=== PATIENT | female | born 1985 | race Caucasian/White ===

== ENCOUNTER 2016-11-06 07:29 | Inpatient (IN) ==
[~2016-11-06 07:29] MED LIST: GENTAMICIN IV SCH
[2016-11-06 08:07] LABS: Apearance,Urine Slightly Hazy (Clear); Bacteria,Urine Few /HPF (Few); Bilirubin,Urine Negative (Negative); Blood, Urine Negative (Negative); Glucose,Urine (UA) Negative (Negative); Ketones,Urine Negative (Negative); Mucus,Urine Occasional /LPF (Occasional); Nitrite,Urine Negative (Negative); Protein,Urine 30 MG/DL; RBC,Urine 1 /HPF (0-4); Squamous Epithelial Cell,Urine Occasional /HPF (0-10); Urine Color Yellow (Yellow); Urine Specific Gravity 1.012 (1.001-1.035); Urine Urobilinogen < 2.0 EU/DL (0.2-1.0); WBC,Urine 49 /HPF (0-6)
[2016-11-06 08:12] LABS: Barbiturates Screen,Urine Negative (Negative); Benzodiazepines Screen,Urine Positive (Negative); Cannabinoid Screen,Urine Negative (Negative); Opiate Screen,Urine Negative (Negative); Phencyclidine Screen,Urine Negative (Negative)
[2016-11-06] MEDS ORDERED: LACTATED RINGERS 1,000 ML IV ONE (08:59)
[2016-11-06] MEDS ORDERED: MEPERIDINE 50 MG/1 ML VIAL IM ONE (08:59)
[2016-11-06] MEDS ORDERED: PROMETHAZINE 25 MG/1 ML VIAL IM ONE (08:59)
[2016-11-06] MEDS ORDERED: AMPICILLIN INJ 2,000 MG in SODIUM CHLORIDE 0.9% 100 ML IV ONE (08:59)
[2016-11-06] MEDS ORDERED: AMPICILLIN 2,000 MG VIAL ONE (09:02)
[2016-11-06] MEDS ORDERED: SODIUM CHLORIDE 0.9% 100 ML IV ONE (09:02)
[2016-11-06] MEDS: LACTATED RINGERS 1,000 ML IV SCH ×2 (10:35→20:00)
[2016-11-06] MEDS ORDERED: ACETAMINOPHEN 325 MG TABLET PO PRN (11:57)
[2016-11-06 12:43] LABS: Basophils % 0.2 % (0.0-0.8); Eosinophils % 0.1 % (0.00-10.9); Hematocrit 29.6 VOL% (35.7-47.0); Hemoglobin 10.1 GM/DL (12.0-16.0); Immature Granulocytes % 1.2 %; Immature Granulocytes Absolute 0.26 #; Lymphocytes # 1.1 10*3/uL (1.4-4.0); Mean Corpuscular HGB Conc 34.1 GM/DL (32-36); Mean Corpuscular Hemoglobin 31 PG (27-34); Mean Corpuscular Volume 90.8 FL (87-102); Mean Platelet Volume 10.2 FL (9.6-12.0); Neutrophils # 19.1 10*3/uL (1.4-7.4); Neutrophils % 84.5 % (38.7-73.9); Platelet Count 289 T/CUMM (130-400); Red Blood Count 3.26 MC/CUMM (3.8-5.5); Red Cell Distribution Width 14.9 % (9.3-17.3); White Blood Count 22.6 T/CUMM (4-12)
[2016-11-06 13:18] LABS: Albumin 2.7 G/DL (3.4-5.0); Bilirubin,Total 0.4 MG/DL (0.2-1.0); Calcium 8.7 MG/DL (8.5-10.1); Osmolality,Calculated 261.4 MOS/KG (273-304); Potassium 3.4 MMOL/L (3.5-5.1); Total Protein 5.9 G/DL (6.4-8.3)
[2016-11-06] MEDS: MEPERIDINE 50 MG/1 ML VIAL IV PRN ×2 (14:45→21:08)
[2016-11-06] MEDS: AMPICILLIN INJ 2,000 MG in SODIUM CHLORIDE 0.9% 100 ML IV SCH ×2 (15:00→21:05)
[2016-11-06] MEDS: PROMETHAZINE 25 MG/1 ML VIAL IM PRN ×2 (15:10→21:07)
[2016-11-06 15:51] LABS: Lymphocytes 6 % (20-55); Segmented Neutrophils 88 % (50-85); Total Cells Counted 100
[2016-11-06 15:52] LABS: Platelet Estimate Normal
--- NOTE | 2016-11-06 19:04 | OB/GYN History & Physical ---
History of Present Illness Chief complaint: 34 weeks gestation, with pyelonephritis History of present illness: Ms. Underwood is a 31 year old female Multiparous patient with a known history of drug abuse, chronic pelvic pain, chronic multiple medical problems, who presents with flank pain on the right side. Urinalysis demonstrated white blood cells leukocytes, and RBCs. In light of these findings with an elevated temperature she was admitted for IV fluids, IV antibiotics, and pain management. This patient will receive NSTs on every shift, ultrasound of the pelvis, and will adjust her pain medicine appropriate. Home Medications Medication Instructions Recorded Confirmed Type Promethazine Tab [Phenergan Tab] 25 mg PO DIRECTED 11/06/16 11/06/16 History Ranitidine Tab [Zantac Tab] 75 mg PO DIRECTED 11/06/16 11/06/16 History Allergies Allergy/AdvReac Type Severity Reaction Status Date / Time ceftriaxone [From Rocephin] Allergy Severe HIVES Verified 01/02/15 15:49 desloratadine [From Clarinex] Allergy HIVES Verified 09/09/15 20:33 Medical,Surgical,& Family Hx - Medical History Psychological: History of: Bipolar Disorder - Surgical History Reproductive Surgeries: Surgical HX of;: Section (2011) Patient denies;: Hysterectomy, Tubal Ligation - Family History Family History: Reports;: Family Cancer, Additional Family History (THYROID, BREAST DISEASE) - Social History Smoking Status: Current every day smoker Frequency of Alcohol Use: None Type of Drug Use: Methamphetamine Exam P[employer]ER [employer]M [employer]KER - Constitutional Vitals: Vital Signs Temp Pulse Resp BP Pulse Ox 11/06/16 17:30 20 11/06/16 15:55 20 11/06/16 15:25 97.3 F L 102 H 20 92/56 98 11/06/16 13:49 20 11/06/16 13:46 20 11/06/16 11:59 101.3 F H 115 H 20 104/61 11/06/16 08:00 102.3 F H 127 H 18 124/60 99 General appearance: mild distress - Antepartum / Post Antepartum Exam Cervix - Dilatation: Long thick and closed - Head Head exam: Present: normal inspection - Eye Eye exam: Present: EOMI - ENT ENT exam: Present: normal exam - Neck Neck exam: Present: normal inspection - Respiratory Respiratory exam: Present: clear to auscultation bilaterally - Breast Breasts: as per HPI Menstruation: as per HPI - Cardiovascular Cardiovascular exam: Present: regular rate and rhythm - GI/Abdominal GI/Abdominal exam: Present: normal bowel sounds, other (CVA tenderness) - Extremities Exam Extremities exam: Present: normal inspection - Back Exam Back exam: Present: normal inspection, CVA tenderness (R) - Neurological Exam Neurological exam: Present: alert, oriented X3 - Psychiatric Psychiatric exam: Present: normal affect - Skin Skin exam: Present: normal color Assessment and Plan (1) Pyelonephritis affecting Status: Acute Assessment and plan: IV fluids, analgesic, and IV antibiotics ampicillin and gentamicin. Current Visit: Yes Results - Labs CBC & BMP: 11/06/16 12:22 11/06/16 12:21 Quality Measures - VTE Contraindication to Pharmacological VTE Prophylaxis: Clinical assessment deems Pt at low risk, no prophalaxis needed
[2016-11-06] MEDS ORDERED: GENTAMICIN INJ 100 MG in PREMIX 1 EACH IV ONE (20:00)
[2016-11-06] MEDS: PANTOPRAZOLE 40 MG VIAL IV PRN (20:12)
[2016-11-06] MEDS: ACETAMINOPHEN 500 MG TABLET PO SCH (20:15)
[2016-11-06] MEDS: PANTOPRAZOLE 40 MG TABLET PO SCH (20:28)
[2016-11-07] MEDS: ACETAMINOPHEN 500 MG TABLET PO SCH (02:08)
[2016-11-07] MEDS: PROMETHAZINE 25 MG/1 ML VIAL IM PRN ×3 (03:15→21:25)
[2016-11-07] MEDS: MEPERIDINE 50 MG/1 ML VIAL IV PRN ×4 (03:15→21:31)
[2016-11-07] MEDS: AMPICILLIN INJ 2,000 MG in SODIUM CHLORIDE 0.9% 100 ML IV SCH ×4 (03:21→21:30)
[2016-11-07] MEDS: LACTATED RINGERS 1,000 ML IV SCH ×3 (04:34→23:00)
[2016-11-07] MEDS: GENTAMICIN INJ 90 MG in SODIUM CHLORIDE 0.9% 100 ML IV SCH ×3 (04:35→20:00)
--- NOTE | 2016-11-07 08:58 | Ultrasound Report ---
History: well being. Maternal pyelonephritis Date: 11/07/2016 Study: Obstetrical ultrasound greater than 14 weeks Comparison exam: None this Real-time ultrasound images are captured and archived. There is a single intrauterine fetus in vertex presentation with a heart rate of 151 bpm. The placenta is anterior without previa. The maternal cervix is grossly closed and measures 3.1 cm length. There is oligohydramnios with an WHITNEY of 4.1 cm. The spine, four-chamber heart view, stomach bubble, kidneys, bladder, and cord insertion are identified and appear normal. The intracranial structures are not measured, though no gross intracranial abnormality is identified. BPD 86 mm or 34 weeks 6 days Head circumference 301 mm or 33 weeks 3 days Abdominal circumference 290 mm or 33 weeks 0 days Femur length 61 mm or 31 weeks 4 days The femur length to BPD ratio is mildly decreased 70.43. The other standard departmental ratios are within normal range. The fetus measures in the 7.7 percentile based on EFW There are no masses of the maternal myometrium. The maternal ovaries are not seen because of gestation size. Incidental note is made of cholelithiasis and a large amount of sludge in the lumen of the gallbladder. Impression: Single intrauterine fetus in vertex presentation with an ultrasound gestational age of 33 weeks 2 days +/- 16 days, MELANIE December 24, 2016, and EFW 2049 g +/- 307 g. motion and cardiac activity are noted during real-time sonography. There is oligohydramnios with WHITNEY of 4.1 cm Incidental note is made of cholelithiasis and a large amount of sludge in the gallbladder PROCEDURE INTERPRETED AT [facility] DEPARTMENT OF RADIOLOGY Final Report Signed by: Dr. Christine Cervantes
[2016-11-07] MEDS: PANTOPRAZOLE 40 MG VIAL IV PRN ×2 (09:15→21:25)
[2016-11-07] MEDS: PANTOPRAZOLE 40 MG TABLET PO SCH ×2 (09:48→21:35)
--- NOTE | 2016-11-07 19:47 | Progress Note ---
Assessment and Plan (1) Pyelonephritis affecting Status: Acute Assessment and plan: IV fluids, analgesic, and IV antibiotics ampicillin and gentamicin. Current Visit: Yes Exam (Progress Note) - Constitutional Vitals: Period Temp Pulse Resp BP Sys/Saeed Pulse Ox Last 24 Hr 97.1 F-98.5 F 83-109 18-20 103-153/54-78 97-98 Results - Labs CBC & BMP: 11/06/16 12:22 11/06/16 12:21 Quality Measures - VTE Contraindication to Pharmacological VTE Prophylaxis: Clinical assessment deems Pt at low risk, no prophalaxis needed
[2016-11-07] MEDS: DOCUSATE SODIUM 100 MG CAPSULE PO SCH (21:30)
[2016-11-08] MEDS: PROMETHAZINE 25 MG/1 ML VIAL IM PRN (02:54)
[2016-11-08] MEDS: MEPERIDINE 50 MG/1 ML VIAL IV PRN ×4 (02:55→21:43)
[2016-11-08] MEDS: AMPICILLIN INJ 2,000 MG in SODIUM CHLORIDE 0.9% 100 ML IV SCH ×2 (03:04→08:35)
[2016-11-08] MEDS: GENTAMICIN INJ 90 MG in SODIUM CHLORIDE 0.9% 100 ML IV SCH (04:45)
--- NOTE | 2016-11-08 08:06 | Ultrasound Report ---
US OB biophys profile Indication: Urinary tract infection. Comparison: None. Technique: Using transcutaneous probe, routine biophysical profile was performed. Ultrasound images were captured and stored. Biophysical variables including breathing, gross body movements, tone, and qualitative amniotic fluid volume scored. Findings: Each of the above physical variables were graded at +2 for a total of +8. The fetus lies in cephalic position. Heart activity is present with a heart rate of 123 beats per minute. The amniotic fluid index is 4.97cm. Incidental imaging of gallstones and gallbladder sludge. Impression: 1. biophysical profile score 6. Score of 0 for breathing. 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 2. Incidental imaging of gallstones and gallbladder sludge. 11/08/2016 8:01 AM PROCEDURE INTERPRETED AT [facility] DEPARTMENT OF RADIOLOGY Final Report Signed by: Dr. Cam Newton
[2016-11-08] MEDS: LACTATED RINGERS 1,000 ML IV SCH (08:24)
[2016-11-08] MEDS: PANTOPRAZOLE 40 MG VIAL IV PRN ×2 (08:24→21:50)
[2016-11-08] MEDS ORDERED: ONDANSETRON 4 MG/2 ML VIAL ONE (08:25)
[2016-11-08] MEDS: ONDANSETRON 4 MG/2 ML VIAL IV PRN ×2 (08:29→15:20)
[2016-11-08] MEDS: DOCUSATE SODIUM 100 MG CAPSULE PO SCH ×2 (08:30→21:43)
[2016-11-08] MEDS: PANTOPRAZOLE 40 MG TABLET PO SCH ×2 (09:13→23:06)
[2016-11-08 10:48] LABS: Basophils % 0.2 % (0.0-0.8); Eosinophils # 0.1 10*3/uL (0.0-0.87); Eosinophils % 1.1 % (0.00-10.9); Hemoglobin 8.6 GM/DL (12.0-16.0); Immature Granulocytes % 1.1 %; Immature Granulocytes Absolute 0.15 #; Lymphocytes # 1.2 10*3/uL (1.4-4.0); Lymphocytes % 9.2 % (21.3-54.2); Mean Corpuscular HGB Conc 34.4 GM/DL (32-36); Mean Corpuscular Hemoglobin 31 PG (27-34); Mean Corpuscular Volume 90.3 FL (87-102); Mean Platelet Volume 9.6 FL (9.6-12.0); Monocytes # 1.6 10*3/uL (0.11-0.8); Monocytes % 12.4 % (1.7-12.7); Platelet Count 235 T/CUMM (130-400); Red Blood Count 2.77 MC/CUMM (3.8-5.5); Red Cell Distribution Width 14.7 % (9.3-17.3); White Blood Count 13.1 T/CUMM (4-12)
[2016-11-08] MEDS: PIPERACILLIN/TAZOBACTAM 3,375 MG in SODIUM CHLORIDE 0.9% 100 ML IV SCH ×2 (11:50→20:13)
--- NOTE | 2016-11-08 12:56 | General Surgery Consult Note ---
Assessment and Plan - Time spent with patient Time spent with patient: Less than 30 minutes (1) Cholelithiasis affecting in third trimester, antepartum Status: Acute Assessment and plan: Impression: Abdominal pain epigastric in nature possibly secondary to use the versus cholelithiasis. Plan: 1. Agree with present IV fluids and IV antibiotics. 2. We will repeat the labs and can get an idea what the trend is at this time. 3. Surgical intervention at this stage of the is difficult due to the large uterus is present and the risk of injury to that at this time. The CO2 and abdominal distention could affect the child during this process. Ideally would be best to put her off until after delivery and did do a gallbladder after that. At this time is difficult to really get an idea handle her symptoms and how severe they might be whether not she could wait until her delivery time. If we had to do something at this point we could easily be looking at an open procedure rather than a laparoscopic. Current Visit: Yes (2) Intrauterine Status: Acute Assessment and plan: Impression: Intrauterine at about 35 weeks. Current Visit: Yes History of Present Illness Chief complaint: Patient with abdominal pain and nausea and 34 week History of present illness: Ms. Underwood is a 31 year old female white female who is in with some abdominal pain 34 week and evidence of urinary tract infection also. Her liver function studies are normal and they have went to do a ultrasound of the fetus and noted that she had some stones and sludge in the gallbladder. She has had multiple pregnancies and denies any symptoms prior to her that would suggest a gallbladder disease at this time. She is claiming that she hurts now primary on the right side right flank area with some nausea especially with most foods. Unfortunately where within the third trimester only 4 weeks of delivery time. Risk of laparoscopic surgery at this stage of the is high and generally not strongly indicated especially elective basis. Will review her studies and her labs and see what her alternatives might be for this patient. Home Medications Medication Instructions Recorded Confirmed Type Promethazine Tab [Phenergan Tab] 25 mg PO DIRECTED 11/06/16 11/06/16 History Ranitidine Tab [Zantac Tab] 75 mg PO DIRECTED 11/06/16 11/06/16 History Allergies Allergy/AdvReac Type Severity Reaction Status Date / Time ceftriaxone [From Rocephin] Allergy Severe HIVES Verified 07/27/15 15:49 desloratadine [From Clarinex] Allergy HIVES Verified 09/09/15 20:33 Medical,Surgical,& Family Hx - Medical History Psychological: History of: Bipolar Disorder - Surgical History Reproductive Surgeries: Surgical HX of;: Section (2011) Patient denies;: Hysterectomy, Tubal Ligation - Family History Family History: Reports;: Family Cancer, Additional Family History (THYROID, BREAST DISEASE) - Social History Smoking Status: Current every day smoker Frequency of Alcohol Use: None Type of Drug Use: Methamphetamine 12 point system: reviewed and no additional remarkable complaints except as stated Exam - Constitutional Vitals: Period Temp Pulse Resp BP Sys/Saeed Pulse Ox Last 24 Hr 97.1 F-98 F 55-101 18-20 104-132/56-75 96-100 General appearance: mild distress - Head Head exam: Present: normal inspection - ENT ENT exam: Present: normal exam - Neck Neck exam: Present: normal inspection - Respiratory Respiratory exam: Present: clear to auscultation bilaterally, rales - Cardiovascular Cardiovascular exam: Present: RRR - GI/Abdominal GI/Abdominal exam: Present: hypoactive bowel sounds, mass (Intrauterine that is well above the umbilicus), tenderness (Right upper quadrant of the abdomen and epigastric area), soft - Extremities Exam Extremities exam: Present: normal inspection - Back Exam Back exam: Present: normal inspection - Neurological Exam Neurological exam: Present: alert, oriented X3, CN II-XII intact - Skin Skin exam: Present: normal color, warm, dry Quality Measures - VTE Contraindication to Pharmacological VTE Prophylaxis: Clinical assessment deems Pt at low risk, no prophalaxis needed Results - Labs CBC & BMP: 11/08/16 10:43 11/06/16 12:21 Lab Results: I have reviewed the past 24 hour labs
--- NOTE | 2016-11-08 14:26 | Progress Note ---
Assessment and Plan (1) Pyelonephritis affecting Status: Acute Assessment and plan: IV fluids, analgesic, and IV antibiotics ampicillin and gentamicin. Current Visit: Yes Family Medicine PN Sub Interval history: Third day of hospitalization, secondary to a UTI, and ultrasound finding of a cholelithiasis. Patient still is not experiencing at this time a temperature, however she has occasional nausea and emesis with her diet. General surgery evaluated this patient and at this point time deemed that she is not a candidate for an operative procedure. They did change her diet to a low-fat diet as well. We will continue with the Protonix as needed also IV fluids and she is being switched to the Ancef for her urinary tract infection. Patient is documented good movements. Exam (Progress Note) - Constitutional Vitals: Period Temp Pulse Resp BP Sys/Saeed Pulse Ox Last 24 Hr 97.1 F-98 F 55-101 18-20 104-132/56-75 96-100 Results - Labs CBC & BMP: 11/08/16 10:43 11/06/16 12:21 Quality Measures - VTE Contraindication to Pharmacological VTE Prophylaxis: Clinical assessment deems Pt at low risk, no prophalaxis needed
[2016-11-08] MEDS ORDERED: MAGNESIUM HYDROXIDE SUSP 30 ML UDCUP PO PRN (23:07)
[2016-11-09] MEDS: LACTATED RINGERS 1,000 ML IV SCH (02:43)
[2016-11-09] MEDS: ONDANSETRON 4 MG/2 ML VIAL IV PRN ×4 (03:57→23:11)
[2016-11-09] MEDS: MEPERIDINE 50 MG/1 ML VIAL IV PRN ×4 (03:57→23:11)
[2016-11-09] MEDS: PIPERACILLIN/TAZOBACTAM 3,375 MG in SODIUM CHLORIDE 0.9% 100 ML IV SCH ×2 (04:00→11:10)
[2016-11-09 07:03] LABS: Basophils % 0.3 % (0.0-0.8); Eosinophils # 0.2 10*3/uL (0.0-0.87); Eosinophils % 1.5 % (0.00-10.9); Hematocrit 25.3 VOL% (35.7-47.0); Hemoglobin 8.5 GM/DL (12.0-16.0); Lymphocytes # 1.2 10*3/uL (1.4-4.0); Lymphocytes % 12.3 % (21.3-54.2); Mean Corpuscular HGB Conc 33.6 GM/DL (32-36); Mean Corpuscular Hemoglobin 30 PG (27-34); Mean Corpuscular Volume 89.7 FL (87-102); Monocytes # 1.1 10*3/uL (0.11-0.8); Monocytes % 11.6 % (1.7-12.7); Neutrophils # 7.2 10*3/uL (1.4-7.4); Neutrophils % 73.3 % (38.7-73.9); Platelet Count 271 T/CUMM (130-400); Red Blood Count 2.82 MC/CUMM (3.8-5.5); Red Cell Distribution Width 14.6 % (9.3-17.3); White Blood Count 9.8 T/CUMM (4-12)
[2016-11-09 07:32] LABS: Alanine Aminotransferase < 9 U/L (13-56); Albumin 1.8 G/DL (3.4-5.0); Alkaline Phosphatase 103 U/L (45-117); Amylase 7 U/L (25-115); Aspartate Amino Transferase 12 U/L (0-37); Bilirubin,Total < 0.39 MG/DL (0.2-1.0); Blood Urea Nitrogen 5 MG/DL (7-18); Calcium 7.9 MG/DL (8.5-10.1); Glucose 96 MG/DL (74-106); Osmolality,Calculated 275.4 MOS/KG (273-304); Potassium 3.1 MMOL/L (3.5-5.1); Sodium 140 MMOL/L (136-145); Total Protein 4.9 G/DL (6.4-8.3)
[2016-11-09] MEDS: PANTOPRAZOLE 40 MG VIAL IV PRN ×2 (08:30→21:18)
[2016-11-09] MEDS: PANTOPRAZOLE 40 MG TABLET PO SCH ×2 (09:00→22:08)
--- NOTE | 2016-11-09 09:58 | Ultrasound Report ---
US OB biophys profile Indication: Abnormal BPP on prior scan. Comparison: Biophysical profile scan 11/08/2016. Technique: Multiple longitudinal and transverse real-time sonographic images of the fetus were obtained with a transabdominal transducer. Findings: Single fetus in vertex presentation with cardiac activity. Heart rate is regular at 1 49 bpm. Amniotic fluid index = 5.06 cm, which is lower limits of normal. Placenta is anterior with no previa. Biophysical variables and scores: breathing movements: 2 out of 2 Gross body movements: 2 out of 2 tone: 2 out of 2 Qualitative amniotic fluid volume: 2 out of 2 Total score: 8 out of 8 Ultrasound images were captured and stored. IMPRESSION: Normal biophysical profile, low risk for chronic asphyxia. PROCEDURE INTERPRETED AT [facility] DEPARTMENT OF RADIOLOGY Final Report Signed by: David Piña
[2016-11-09] MEDS: DOCUSATE SODIUM 100 MG CAPSULE PO SCH ×2 (10:00→21:18)
--- NOTE | 2016-11-09 11:33 | General Surgery Progress Note ---
Assessment and Plan - Time spent with patient Time spent with patient: Less than 30 minutes (1) Cholelithiasis affecting in third trimester, antepartum Status: Acute Assessment and plan: Impression: Abdominal pain epigastric in nature possibly secondary to use the versus cholelithiasis. Plan: 1. Agree with present IV fluids and IV antibiotics. 2. We will repeat the labs and can get an idea what the trend is at this time. 3. Surgical intervention at this stage of the is difficult due to the large uterus is present and the risk of injury to that at this time. The CO2 and abdominal distention could affect the child during this process. Ideally would be best to put her off until after delivery and did do a gallbladder after that. At this time is difficult to really get an idea handle her symptoms and how severe they might be whether not she could wait until her delivery time. If we had to do something at this point we could easily be looking at an open procedure rather than a laparoscopic. 11/09/2016. Patient seems a little bit better. I have modified her diet to get into a low- fat diet and has spoken to her about the food she can eat and that she needs to avoid. Indicated that she needed avoid salads at that can stimulate the gallbladder 2. At this time the is far enough along that be difficult to do this laparoscopically greater risk of injury with the uterus and still may have trouble exposing the gallbladder. Her lab studies are pretty much within normal limits with no sign of anything to suggest acute inflammatory process or biliary obstruction. Ideally would be best to nurse her through the and then get the gallbladder out a week or so after the delivery so that we can more safely deal with her process. We will continue to observe at this time try to get her improve symptomatically at this time. Current Visit: Yes (2) Intrauterine Status: Acute Assessment and plan: Impression: Intrauterine at about 35 weeks. Current Visit: Yes Subjective Patient reports: Present: feels better, pain is less, afebrile, other (On a low- fat diet and seems to tolerate better) Exam - Constitutional Vitals: Period Temp Pulse Resp BP Sys/Saeed Pulse Ox Last 24 Hr 97.2 F-98.0 F 71-88 18-20 104-130/57-86 97-98 General appearance: mild distress - Head Head exam: Present: normal inspection - ENT ENT exam: Present: normal exam - Neck Neck exam: Present: normal inspection - Respiratory Respiratory exam: Present: clear to auscultation bilaterally - Cardiovascular Cardiovascular exam: Present: RRR - GI/Abdominal GI/Abdominal exam: Present: mass (An intrauterine up to the xiphoid), tenderness (Tenderness is mostly subjective towards the right flank), soft - Extremities Exam Extremities exam: Present: normal inspection - Back Exam Back exam: Present: normal inspection - Neurological Exam Neurological exam: Present: alert, oriented X3, CN II-XII intact - Skin Skin exam: Present: normal color, warm, dry Results - Labs CBC & BMP: 11/09/16 06:55 11/09/16 06:55 Lab Results: I have reviewed the past 24 hour labs Quality Measures - VTE Contraindication to Pharmacological VTE Prophylaxis: Clinical assessment deems Pt at low risk, no prophalaxis needed Specialty Discharge - Follow Up or Referrals
[2016-11-09] MEDS: ALUMINUM/MAGNES/SIMETH MAX STR 30 ML UDCUP PO PRN ×3 (11:37→23:59)
--- NOTE | 2016-11-09 11:43 | Progress Note ---
Assessment and Plan (1) Pyelonephritis affecting Status: Acute Assessment and plan: IV fluids, analgesic, and IV antibiotics ampicillin and gentamicin. Current Visit: Yes Family Medicine PN Sub Interval history: Patient with a known history of acute cholecystitis, and also a pyelonephritis. Presently she is afebrile doing well tolerating clear liquid diet. Fetus is active biophysical profile prior to today was 6 out of 8 repeat this a.m. was 8 out of 8. heart tones demonstrated a reactive nonstress test. We will continue to observe. Will replace potassium intravenously and also p.o., also her blood count is 8 and 25 and also re-replace iron therapy. Will limit the amount of IV narcotics and try to convert this patient to p.o. in 24 hours. Also will limit the amount of analgesics that is possible. Exam (Progress Note) - Constitutional Vitals: Period Temp Pulse Resp BP Sys/Saeed Pulse Ox Last 24 Hr 97.2 F-98.0 F 71-88 18-20 104-130/57-86 97-98 Results - Labs CBC & BMP: 11/09/16 06:55 11/09/16 06:55 Quality Measures - VTE Contraindication to Pharmacological VTE Prophylaxis: Clinical assessment deems Pt at low risk, no prophalaxis needed Specialty Discharge - Follow Up or Referrals
[2016-11-09] MEDS: FERROUS SULFATE 325 MG TABLET PO SCH (11:52)
[2016-11-09] MEDS: POTASSIUM CHLORIDE INJ 20 MEQ in LACTATED RINGERS 1,000 ML IV SCH ×2 (14:53→23:59)
[2016-11-09] MEDS: AMOXICILLIN/CLAV 875 MG TABLET PO SCH (21:18)
[2016-11-09] MEDS: POTASSIUM CHLORIDE 20 MEQ TABLET PO SCH (21:18)
[2016-11-10] MEDS: MEPERIDINE 50 MG/1 ML VIAL IV PRN (05:43)
[2016-11-10] MEDS: ONDANSETRON 4 MG/2 ML VIAL IV PRN (05:43)
[2016-11-10] MEDS: POTASSIUM CHLORIDE INJ 20 MEQ in LACTATED RINGERS 1,000 ML IV SCH ×2 (08:00→15:34)
[2016-11-10] MEDS: POTASSIUM CHLORIDE 20 MEQ TABLET PO SCH ×2 (09:25→21:31)
[2016-11-10] MEDS: FERROUS SULFATE 325 MG TABLET PO SCH (09:25)
[2016-11-10] MEDS: PANTOPRAZOLE 40 MG TABLET PO SCH ×2 (09:25→21:32)
[2016-11-10] MEDS: AMOXICILLIN/CLAV 875 MG TABLET PO SCH ×2 (09:25→21:31)
[2016-11-10] MEDS: DOCUSATE SODIUM 100 MG CAPSULE PO SCH ×2 (09:25→21:31)
--- NOTE | 2016-11-10 09:34 | OB/GYN Progress Note ---
Assessment and Plan (1) Bipolar disease during Status: Acute Current Visit: No (2) S/P repeat low transverse Status: Acute Current Visit: No (3) Cholelithiasis affecting in third trimester, antepartum Status: Acute Assessment and plan: Pt is stable this morning. 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 Baby active Exam HOSPITAL RECEPTIONIST - Constitutional Vitals: Vital Signs Temp Pulse Resp BP Pulse Ox 11/10/16 07:55 97.9 F 75 20 108/55 98 11/10/16 04:10 97.1 F L 85 20 121/66 98 11/10/16 02:05 16 11/09/16 23:59 97.0 F L 81 20 122/70 96 11/09/16 20:00 97.4 F L 102 H 20 131/78 100 11/09/16 16:00 97.5 F L 80 20 126/87 98 11/09/16 12:00 97.6 F 86 20 128/84 98 General appearance: no acute distress - Head Head exam: Present: normocephalic - Eye Eye exam: Present: EOMI - GI/Abdominal GI/Abdominal exam: Present: other (gravid. FHTs reactive) Results - Labs CBC & BMP: 11/09/16 06:55 11/09/16 06:55
[2016-11-10] MEDS: ONDANSETRON 4 MG TABLET PO PRN ×2 (11:58→19:11)
[2016-11-10] MEDS: ALUMINUM/MAGNES/SIMETH MAX STR 30 ML UDCUP PO PRN (18:39)
[2016-11-10] MEDS ORDERED: NYSTATIN 500,000 UNIT/5 ML UDCUP SWISH/SWAL SCH ×2 (20:00→21:00)
[2016-11-11] MEDS: ALUMINUM/MAGNES/SIMETH MAX STR 30 ML UDCUP PO PRN (06:31)
[2016-11-11 06:53] VITALS: BP 103/59
--- NOTE | 2017-01-20 08:06 | Discharge Summary ---
DATE OF ADMISSION: 11/06/2016 DATE OF DISCHARGE: 11/11/2016 This patient was admitted on the 11/06/16 and subsequently treated for a pyelonephritis. A urinalysis demonstrated significant amount of leukocytes, bacteria, and red blood cells in the urine. She complained of a flank discomfort to the point where she was doubled up over in pain. She received IV fluids, analgesic on a limited basis because of a long history of drug uses. The fetus was monitored on a regular basis and well documented cardiac activity was noted. The patient remained in the hospital for two days in the hospital, received IV antibiotics and was subsequently discharged with Bactrim DS and to be followed up in our office in approximately 1 week. ALBARO
== END 2016-11-11 07:09 | disposition home or self-care (01) | DRG 566 ==
LOC: N.LDOUT 07:29 → N.LD 07:30 → N.OB 12:57
PROVIDERS: ADMIT Obstetrics & Gynecology; ATTEND Obstetrics & Gynecology

== ENCOUNTER 2016-11-30 12:39 | Inpatient (IN) ==
[2016-11-30] MEDS ORDERED: CITRIC ACID/SODIUM CITRATE 30 ML UDCUP PO ONE (12:49)
[2016-11-30] MEDS ORDERED: FAMOTIDINE 20 MG/2 ML VIAL IV ONE (12:54)
[2016-11-30] MEDS ORDERED: LACTATED RINGERS 1,000 ML IV ONE (12:54)
[2016-11-30] MEDS ORDERED: LACTATED RINGERS 1,000 ML IV SCH ×2 (13:00→15:00)
[2016-11-30 13:09] LABS: Basophils # 0.1 10*3/uL (0.0-0.2); Basophils % 0.7 % (0.0-0.8); Eosinophils # 0.2 10*3/uL (0.0-0.87); Eosinophils % 1.3 % (0.00-10.9); Hematocrit 30.6 VOL% (35.7-47.0); Hemoglobin 10.3 GM/DL (12.0-16.0); Immature Granulocytes % 0.9 %; Immature Granulocytes Absolute 0.11 #; Lymphocytes # 1.9 10*3/uL (1.4-4.0); Lymphocytes % 15.1 % (21.3-54.2); Mean Corpuscular HGB Conc 33.7 GM/DL (32-36); Mean Corpuscular Hemoglobin 30 PG (27-34); Mean Platelet Volume 9.9 FL (9.6-12.0); Monocytes # 0.9 10*3/uL (0.11-0.8); Neutrophils # 9.4 10*3/uL (1.4-7.4); Platelet Count 336 T/CUMM (130-400); Red Cell Distribution Width 14.9 % (9.3-17.3); White Blood Count 12.5 T/CUMM (4-12)
[2016-11-30] MEDS ORDERED: OXYTOCIN/LR 20 UNIT/1,000 ML BAG IV ONE ×2 (13:28→14:47)
[2016-11-30] MEDS ORDERED: SODIUM CHLORIDE 0.9% 100 ML IV ONE (13:29)
--- NOTE | 2016-11-30 13:30 | OB/GYN History & Physical ---
History of Present Illness Chief complaint: SROM History of present illness: Ms. Underwood is a 31 year old female at 37 6/7 weeks who comes in with ruptured membranes and h/o section x 2. Needs repeat with tubal. Pt reports rupture this afternoon. Also admits to alcohol use today. Medical history is complicated by bipolar disorder, alcohol abuse in and polysubstance(opiods, tobacco and alcohol) abuse in . Reviewed R/B /A to repeat section with tubal ligation. Pt willing to proceed. Surgical history significant for section x 2, appendectomy, rods in right elbow , rods in right leg, facial reconstruction, D&C x 2. Home Medications Medication Instructions Recorded Confirmed Type Promethazine Tab [Phenergan Tab] 25 mg PO DIRECTED 11/06/16 11/06/16 History Ranitidine Tab [Zantac Tab] 75 mg PO DIRECTED 11/06/16 11/06/16 History Allergies Allergy/AdvReac Type Severity Reaction Status Date / Time ceftriaxone [From Rocephin] Allergy Severe HIVES Verified 11/14/16 23:58 desloratadine [From Clarinex] Allergy HIVES Verified 11/14/16 23:58 Medical,Surgical,& Family Hx - Medical History Psychological: History of: Bipolar Disorder - Surgical History Reproductive Surgeries: Surgical HX of;: Section (2011) Patient denies;: Hysterectomy, Tubal Ligation - Family History Family History: Reports;: Family Cancer - Social History Smoking Status: 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, 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 General appearance: no acute distress - Head Head exam: Present: normal inspection, normocephalic - Eye Eye exam: Present: EOMI Pupils: Present: LETA - Respiratory Respiratory exam: Present: clear to auscultation bilaterally - Cardiovascular Cardiovascular exam: Present: regular rate and rhythm - GI/Abdominal GI/Abdominal exam: Present: other (gravid, FHTs reassuring) - Psychiatric Psychiatric exam: Present: agitated, anxious Assessment and Plan (1) 37 weeks gestation of Status: Acute Current Visit: Yes (2) Polysubstance dependence Status: Acute Current Visit: Yes (3) History of delivery Status: Acute Assessment and plan: SROM at term with h/o polysubstance abuse and undesired fertility Proceed with repeat section with tubal Current Visit: Yes (4) Unwanted fertility Status: Acute Current Visit: Yes (5) Bipolar disease during Status: Acute Current Visit: No Results - Labs CBC & BMP: 11/30/16 13:01
[2016-11-30] MEDS ORDERED: ONDANSETRON 4 MG/2 ML VIAL ONE (13:42)
[2016-11-30] MEDS ORDERED: PROPOFOL 200 MG/20 ML VIAL IV ONE (13:42)
[2016-11-30] MEDS ORDERED: PHENYLEPHRINE 1 MG/10 ML SYRINGE IV ONE (13:42)
[2016-11-30] MEDS ORDERED: SUCCINYLCHOLINE 200 MG/10 ML VIAL ONE (13:42)
[2016-11-30] MEDS ORDERED: ONDANSETRON 4 MG/2 ML VIAL IV PRN (14:47)
[2016-11-30] MEDS ORDERED: RHO(D) IMMUNE GLOBULIN 300 MCG SYRINGE IM ONE ×2 (14:47→15:00)
--- NOTE | 2016-11-30 14:57 | Anesthesia Post-Op ---
Anesthesia Post OP - Post Ansesthetic Evaluation Patient seen in post op: Yes Resp: within normal limits CV: within normal limits Mental: within normal limits Temp: within normal limits [id number]: within normal limits Nausea and Vomiting: within normal limits Pain: within normal limits
[2016-11-30] MEDS ORDERED: MORPHINE 10 MG/10 ML VIAL ONE (15:00)
[2016-11-30] MEDS ORDERED: fentaNYL 100 MCG/2 ML VIAL ONE (15:00)
[2016-11-30] MEDS ORDERED: MIDAZOLAM 2 MG/2 ML VIAL ONE (15:00)
--- NOTE | 2016-11-30 15:02 | Operative Note ---
Date of procedure: 11/30/16 Pre-op diagnosis: 1. 37 6/7 wks 2. SROM 3. h/o sect x 2 4. undesired fertility Post-op diagnosis: other (Same add to pre op and post op 5. Polysubstance abuse 6. Bipolar disorder) Procedure: REPEAT C SECTION WITH BILATERAL TUBAL LIGATION Pt was taken to the OR. Positioned on the table. Prepped and draped with gomez in her bladder. Team in place prior to putting her to sleep ready to cut. (Decision to proceed with GETA because once in the OR and set up for regional anesthesia, pt informed anesthesia team that she has had 4 back surgeries). With the anesthesia go ahead, proceeded with midline incision thru previous scar. Carried down thru the fascia. Incised and extended with puga scissors.Midline entered sharply and incision extended bluntly. Mat retractor placed. Incision with scalpel just above bladder reflection. Extended bluntly. Anterior placenta noted. Clear fluid. delivered without issue. Cord clamped and cut, handed off to awaiting NICU team. Placenta delivered without issue and uterus cleared of clot an debris. Kendy clamps placed and uterus closed in 2 layers with vicryl suture. The first a locked layer and the second imbricating. Girl weighing 5lbs 8 oz with APGARS 7/9 of Normal uterus, tubes and ovaries. Attention then turned to tubal ligation. Left tube identified with babbcock clamp x 2. Suture thru mesosalpinx then tube ligated x 2. Segment of tube cut and handed off. Similar procedure on the opposite side. Irrigation. Fascia closed from top to midline with looped PDS suture. Similar procedure from the inferior portion of the incision with a second PDS suture. Plain gut used in an interrupted fashion to close the subcutaneous tissue. Skin stapled. Sponge, lap and needle counts correct x 2. Pt taken to recovery in stable condition. Anesthesia: CHAROA Surgeon / Physician: Toshia Nation Estimated blood loss: other (700 cc) Specimens: other (Segment of both tubes) Condition: stable Disposition: PACU Results - Labs CBC & BMP: 11/30/16 13:01 Discharge Plan - Discharge Medications No Action Ranitidine Tab [Zantac Tab] 75 mg PO DIRECTED Promethazine Tab [Phenergan Tab] 25 mg PO DIRECTED - Follow Up or Referral - Forms/Instructions
[2016-11-30] MEDS ORDERED: NALOXONE 0.4 MG/ML VIAL IV PRN (15:08)
[2016-11-30] MEDS ORDERED: HYDROmorphone PCA 30 MG/30 ML SYRINGE IV SCH (15:30)
[2016-11-30 15:58] LABS: Barbiturates Screen,Urine Negative (Negative); Benzodiazepines Screen,Urine Negative (Negative); Cannabinoid Screen,Urine Negative (Negative); Opiate Screen,Urine Positive (Negative); Phencyclidine Screen,Urine Negative (Negative)
[2016-11-30 16:02] LABS: Apearance,Urine Slightly Hazy (Clear); Bacteria,Urine Many /HPF (Few); Bilirubin,Urine Negative (Negative); Blood, Urine Negative (Negative); Glucose,Urine (UA) Negative (Negative); Ketones,Urine Negative (Negative); Mucus,Urine Occasional /LPF (Occasional); Nitrite,Urine Negative (Negative); Protein,Urine Negative; RBC,Urine 1 /HPF (0-4); Squamous Epithelial Cell,Urine Occasional /HPF (0-10); Urine Color Yellow (Yellow); Urine Specific Gravity 1.013 (1.001-1.035); Urine Urobilinogen < 2.0 EU/DL (0.2-1.0); WBC,Urine 20 /HPF (0-6)
[2016-11-30] MEDS ORDERED: PROMETHAZINE 25 MG/1 ML VIAL IM PRN (17:17)
[2016-11-30] MEDS: HYDROmorphone 2 MG/1 ML VIAL IV PRN ×2 (17:20→20:25)
[2016-11-30] MEDS: diphenhydrAMINE 50 MG/1 ML VIAL IV PRN ×2 (17:28→22:12)
[2016-11-30] MEDS: DOCUSATE SODIUM 100 MG CAPSULE PO SCH (21:20)
[2016-11-30] MEDS: IBUPROFEN 800 MG TABLET PO SCH (21:34)
[2016-11-30] MEDS: CLINDAMYCIN INJ 900 MG in PREMIX 1 EACH IV SCH (22:15)
[2016-11-30 23:30] LABS: Basophils # 0.1 10*3/uL (0.0-0.2); Basophils % 0.4 % (0.0-0.8); Eosinophils # 0.1 10*3/uL (0.0-0.87); Eosinophils % 0.8 % (0.00-10.9); Hematocrit 25.4 VOL% (35.7-47.0); Hemoglobin 8.5 GM/DL (12.0-16.0); Immature Granulocytes % 0.8 %; Immature Granulocytes Absolute 0.14 #; Lymphocytes # 2.5 10*3/uL (1.4-4.0); Lymphocytes % 13.9 % (21.3-54.2); Mean Corpuscular HGB Conc 33.5 GM/DL (32-36); Mean Corpuscular Hemoglobin 30 PG (27-34); Mean Corpuscular Volume 90.4 FL (87-102); Mean Platelet Volume 10.2 FL (9.6-12.0); Monocytes # 1.1 10*3/uL (0.11-0.8); Monocytes % 6.2 % (1.7-12.7); Neutrophils # 14.1 10*3/uL (1.4-7.4); Neutrophils % 77.9 % (38.7-73.9); Platelet Count 327 T/CUMM (130-400); Red Blood Count 2.81 MC/CUMM (3.8-5.5); Red Cell Distribution Width 15.1 % (9.3-17.3)
[2016-12-01] MEDS: IBUPROFEN 800 MG TABLET PO SCH ×4 (01:00→17:57)
[2016-12-01] MEDS: HYDROmorphone 2 MG/1 ML VIAL IV PRN ×2 (01:40→07:55)
[2016-12-01] MEDS: diphenhydrAMINE 50 MG/1 ML VIAL IV PRN ×2 (02:40→06:35)
[2016-12-01 03:42] LABS: Basophils # 0.1 10*3/uL (0.0-0.2); Basophils % 0.4 % (0.0-0.8); Eosinophils # 0.2 10*3/uL (0.0-0.87); Eosinophils % 1.2 % (0.00-10.9); Hematocrit 24.9 VOL% (35.7-47.0); Hemoglobin 8.3 GM/DL (12.0-16.0); Immature Granulocytes Absolute 0.14 #; Lymphocytes % 15.2 % (21.3-54.2); Mean Corpuscular HGB Conc 33.3 GM/DL (32-36); Mean Corpuscular Hemoglobin 30 PG (27-34); Mean Corpuscular Volume 90.2 FL (87-102); Monocytes # 1.1 10*3/uL (0.11-0.8); Monocytes % 8.1 % (1.7-12.7); Neutrophils # 9.9 10*3/uL (1.4-7.4); Neutrophils % 74.1 % (38.7-73.9); Platelet Count 297 T/CUMM (130-400); Red Blood Count 2.76 MC/CUMM (3.8-5.5); Red Cell Distribution Width 15.2 % (9.3-17.3); White Blood Count 13.4 T/CUMM (4-12)
[2016-12-01] MEDS: CLINDAMYCIN INJ 900 MG in PREMIX 1 EACH IV SCH (05:48)
--- NOTE | 2016-12-01 07:50 | OB/GYN Progress Note ---
Assessment and Plan (1) 37 weeks gestation of Status: Acute Current Visit: Yes (2) Polysubstance dependence Status: Acute Current Visit: Yes (3) History of delivery Status: Acute Assessment and plan: SROM at term with h/o polysubstance abuse and undesired fertility Proceed with repeat section with tubal Current Visit: Yes (4) Unwanted fertility Status: Acute Current Visit: Yes (5) Bipolar disease during Status: Acute Current Visit: No (6) History of bilateral tubal ligation Status: Acute Current Visit: Yes (7) S/P repeat low transverse Status: Acute Assessment and plan: POD# 1 s/p repeat section with tubal Doing ok Continue care Current Visit: No 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: 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 Interval history: Usual complaints given her chronic polysubstance abuse Exam PULPER OPERATOR - Constitutional Vitals: Vital Signs Temp Pulse Resp BP Pulse Ox 12/01/16 03:47 97.8 F 74 18 107/71 98 12/01/16 02:40 72 18 111/62 99 12/01/16 00:00 97.4 F L 78 16 109/74 96 11/30/16 22:12 63 16 118/64 98 11/30/16 20:00 97.5 F L 76 16 116/59 99 11/30/16 18:51 66 18 95/51 99 11/30/16 18:00 82 18 106/71 98 11/30/16 17:30 73 20 123/66 98 11/30/16 17:00 97.5 F L 84 20 132/99 99 General appearance: no acute distress - Head Head exam: Present: normocephalic - GI/Abdominal GI/Abdominal exam: Present: other (Incision intact) Results - Labs CBC & BMP: 12/01/16 03:30
[2016-12-01] MEDS: DOCUSATE SODIUM 100 MG CAPSULE PO SCH ×2 (09:12→20:30)
[2016-12-01] MEDS: MULTIVITAMIN (PRENATAL) TABLET PO SCH ×2 (09:12→12:25)
[2016-12-01] MEDS ORDERED: oxyCODONE IR 5 MG TABLET PO PRN (17:23)
[2016-12-01] MEDS: SIMETHICONE CHEW 80 MG TABLET PO PRN (20:30)
[2016-12-01] MEDS: MAGNESIUM HYDROXIDE SUSP 30 ML UDCUP PO PRN (20:30)
[2016-12-02] MEDS: IBUPROFEN 800 MG TABLET PO SCH ×3 (01:50→18:46)
[2016-12-02] MEDS: SIMETHICONE CHEW 80 MG TABLET PO PRN ×2 (08:52→22:00)
[2016-12-02] MEDS: DOCUSATE SODIUM 100 MG CAPSULE PO SCH ×2 (08:52→22:00)
[2016-12-02] MEDS: MAGNESIUM HYDROXIDE SUSP 30 ML UDCUP PO PRN ×2 (08:52→22:00)
[2016-12-02] MEDS: MULTIVITAMIN (PRENATAL) TABLET PO SCH (08:52)
--- NOTE | 2016-12-02 09:58 | OB/GYN Progress Note ---
Assessment and Plan (1) S/P repeat low transverse Status: Acute Assessment and plan: Postop orders. 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 Bonding with infant. Exam PHYSICAL INSTRUCTOR - Constitutional Vitals: Vital Signs Temp Pulse Resp BP Pulse Ox 12/02/16 07:25 97.7 F 89 18 109/60 98 12/02/16 05:42 18 12/02/16 04:00 98.9 F 118 H 22 134/77 98 12/02/16 00:15 97.4 F L 109 H 20 135/79 95 12/01/16 19:10 98.2 F 83 20 126/66 97 12/01/16 16:00 98.2 F 89 18 109/55 99 12/01/16 12:00 98.3 F 78 17 98/52 97 General appearance: no acute distress - Antepartum / Post Post Exam Breast: bilateral: normal Abdomen obstetrics: Present: bowel sounds normal Vagina: Present: normal moisture, discharge (Light lochia rubra) Uterus exam: Present: enlarged (FF Ml) - Head Head exam: Present: normal inspection - Respiratory Respiratory exam: Present: clear to auscultation bilaterally - Cardiovascular Cardiovascular exam: Present: regular rate and rhythm - GI/Abdominal GI/Abdominal exam: Present: normal bowel sounds, soft - Extremities Exam Extremities exam: Present: normal inspection - Neurological Exam Neurological exam: Present: alert, oriented X3 - Psychiatric Psychiatric exam: Present: normal affect, normal mood - Skin Skin exam: Present: normal color, warm Results - Labs CBC & BMP: 12/01/16 03:30
--- NOTE | 2016-12-02 10:15 | Discharge Summary ---
Hospital Course - Hospital Course Hospital Course: Ms. Underwood presented to the labor department with spontaneous rupture membranes and previous section. The patient had a repeat section and bilateral tubal ligation. She has followed a normal postoperative course. Her incision is well approximately without signs of infection. She has gege intact. She is bonding well with her infant. Her bowel sounds are positive. She is voiding without difficulty. She denies any pain in her legs. Her bleeding is minimal with no odor. She will be discharged home with prescriptions for pain and a follow-up appointment in our office. Diagnosis - Discharge Diagnosis (1) S/P repeat low transverse Status: Acute Specialty Discharge - Follow Up or Referrals Follow up with: Karyn Villa MD [Physician] - 2 Weeks Discharge Plan - Discharge Data Disposition: Disch To Home/Self Care Condition at Discharge: Stable Discharge Diet: advance to your usual diet, regular diet Activity: increase activity as tolerated, no lifting, no prolonged standing Hygiene: may shower Weight Bearing at Discharge: partial weight bearing Driving: not until seen by doctor Contact your physician if you experience:: fever over 101, pain uncontrolled by pain medications - Discharge Medications New Ferrous Sulfate Tab [Feosol Original Tab] 325 mg PO BID #60 tablet HYDROcodone/ACETAMIN 5-325 [Woodland 5-325] 2 tablet PO Q6H PRN #30 tablet PRN Reason: Pain Severe (8-10) Ibuprofen Tab [Motrin Tab] 800 mg PO Q8H PRN #45 tablet PRN Reason: Pain Mild To Moderate (1-7) No Action HYDROcodone/ACETAMIN 5-325 [Woodland 5-325] 1 tablet PO Q4H Ketorolac Tab [Toradol Tab] 10 mg PO Q6H PRN PRN Reason: Pain Ranitidine Tab [Zantac Tab] 75 mg PO DIRECTED Promethazine Tab [Phenergan Tab] 25 mg PO DIRECTED - Follow Up or Referral - Forms/Instructions Exam - Constitutional Vitals: Period Temp Pulse Resp BP Sys/Saeed Pulse Ox Last 24 Hr 97.4 F-98.9 F 78-118 17-22 98-135/52-79 95-99 General appearance: no acute distress - Head Head exam: Present: normal inspection - Respiratory Respiratory exam: Present: clear to auscultation bilaterally - Cardiovascular Cardiovascular exam: Present: regular rate and rhythm - GI/Abdominal GI/Abdominal exam: Present: normal bowel sounds - Back Exam Back exam: Present: normal inspection - Neurological Exam Neurological exam: Present: alert, oriented X3 - Psychiatric Psychiatric exam: Present: normal affect, normal mood - Skin Skin exam: Present: normal color, warm Discharge Results Procedures and tests throughout hospitalization: Pending Orders 11/30/16 Urine Culture Routine Labs on day of discharge: Preliminary micro results at discharge 11/30/16 Unknown Urine Culture - Preliminary Urine,Voided Gram Negative Rods DS: Provider Date of admission: 11/30/16 12:51 Primary care physician: . No PCP Attending physician on admission: Toshia Nation MD Consults: 11/30/16 13:22 Consult to Case Mgmt/Social Srvs [CONS] Routine Reason for Case Mgmt/Social Srvs: Other Consult Comment: Regular alcohol use in , substance abuse. Danger to infant 11/30/16 14:47 Consult to Control Systems Specialist [CONS] Routine Consult Control Systems Specialist: Breast Feeding Discharging clinician: Erika Muir CNM Expected date of discharge: 12/02/16
[2016-12-02] MEDS ORDERED: DIPH/TET/ACEL PERT BOOSTER VACCINE 0.5 ML VIAL IM ONE (11:45)
[2016-12-03] MEDS: IBUPROFEN 800 MG TABLET PO SCH ×2 (02:00→09:58)
[2016-12-03 07:29] VITALS: BP 115/67
[2016-12-03] MEDS: DOCUSATE SODIUM 100 MG CAPSULE PO SCH (08:29)
[2016-12-03] MEDS: MULTIVITAMIN (PRENATAL) TABLET PO SCH (08:29)
--- NOTE | 2016-12-03 09:43 | OB/GYN Progress Note ---
Assessment and Plan (1) S/P repeat low transverse Status: Acute Assessment and plan: Postop orders. 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 Bonding well with infant. Patient will be discharged home today with prescriptions and a follow-up appointment in our office. Exam JAVA WEBSPHERE DEVELOPER - Constitutional Vitals: Vital Signs Temp Pulse Resp BP Pulse Ox 12/03/16 07:28 96.6 F L 73 18 115/67 98 12/03/16 04:00 98.1 F 85 18 132/76 97 12/03/16 02:00 18 12/03/16 00:00 97.9 F 110 H 18 147/65 95 12/02/16 20:00 99.8 F H 100 H 18 122/57 98 12/02/16 15:47 98.3 F 88 20 125/56 97 12/02/16 11:52 98 F 106 H 20 138/77 97 General appearance: no acute distress - Antepartum / Post Post Exam Breast: bilateral: normal Abdomen obstetrics: Present: bowel sounds normal Vulva: bilateral: normal Vagina: Present: normal moisture, discharge Uterus exam: Present: enlarged (Fundus firm and midline) - Respiratory Respiratory exam: Present: clear to auscultation bilaterally - Cardiovascular Cardiovascular exam: Present: regular rate and rhythm - GI/Abdominal GI/Abdominal exam: Present: normal bowel sounds, rebound - Extremities Exam Extremities exam: Present: normal inspection - Neurological Exam Neurological exam: Present: alert, oriented X3 - Psychiatric Psychiatric exam: Present: normal affect, normal mood - Skin Skin exam: Present: normal color, warm Results - Labs CBC & BMP: 12/01/16 03:30
--- NOTE | 2016-12-04 13:16 | Pathology Report from [facility] ---
[facility] [place] ACCESSION # : [id number] PATIENT NAME : Peggy Underwood ORDERING DR : Toshia Nation MD CLINICAL HX: IUP @ 37.6 wks, previous C/S, request sterilization POST-OP DX: Same SPECIMEN INFO: #1 LT segment fallopian tube #2 RT segment fallopian tube GROSS DESCRIPTION: The specimen is received fresh in two parts labeled PEGGY UNDERWOOD. Part #1 labeled LT FALLOPIAN TUBE consists of a 1.3 x 0.5 cm unfimbriated fallopian tube segment. A technical support representative section submitted in cassette #1.Part #2 labeled RT FALLOPIAN TUBE consists of a 1.7 x 9.5 cm unfimbriated fallopian tube segment. A technical support representative section submitted in cassette #2. DIAGNOSIS FOR PEGGY UNDERWOOD: #1 Completely transected segment of fallopian tube, left.#2 Completely transected segment of fallopian tube, right. COLLECTED DATE: 12/02/2016 [facility] REPORT DATE: 12/03/2016 ELECTRONICALLY SIGNED BY: Geraldo Go M.D. 12/03/2016 - 9:52:58 [facility]
== END 2016-12-03 12:10 | disposition home or self-care (01) | DRG 540 ==
LOC: N.LD 12:39 → N.OB 16:54
PROVIDERS: ADMIT Obstetrics & Gynecology; ATTEND Obstetrics & Gynecology